=== PATIENT | female | born 1985 | race Caucasian/White ===

== ENCOUNTER 2018-05-31 21:22 | Emergency (ER) | payer OTHER, MEDICAID ==
[2018-05-31] MEDS ORDERED: valACYclovir 500 MG TAB PO ONE ×2 (22:23)
[2018-05-31] MEDS ORDERED: IBUPROFEN 600 MG TAB PO ONE (22:31)
--- NOTE | 2018-05-31 22:42 | EDPHY ---
H & P Time Seen by Provider: 05/31/18 21:48 HPI/ROS: HPI I think I have shingles. 32-year-old female by private vehicle. This patient has a history of 2 prior episodes of zoster shingles. She had 1 episode above her right eye involving the right eyebrow and she has some swelling of the right upper eyelid. She denies any previous history of ocular involvement or involvement of her ear. She reports that she woke up this morning with a swelling and subtle vesicular rash over her right eyebrow. She has been treated successfully in the past with valacyclovir. She denies any changes in vision or pain involving her cornea. No pain with extraocular movements. She denies any ear pain or changes in hearing. No scalp pain. She has not had a fever. No history of trauma. ROS: Constitutional: No fever, no chills. No weakness. Eyes: No discharge. No changes in vision. As above. Musculoskeletal: No neck pain. No myalgias or arthralgias. Skin: As above. Neurological: No headache. Past medical history: Iron deficiency anemia. Shingles. Social history: Nonsmoker. No alcohol. Here by herself. Physical Exam: General Appearance: Alert, no distress. This patient is responding to questions appropriately and in full sentences. This patient appears well- hydrated and well-nourished. Eyes: Pupils equal and round no pallor or injection. She has subtle right upper lid edema which is more prominent on the lateral aspect of the right upper eyelid. She has 2 small subtle areas of vesicular rash involving that right upper eyelid. The right eye is unremarkable on gross inspection. Slit- lamp exam right eye; no hypopyon, no hyphema, anterior chamber is deep and clear , no cell/flare, no evidence of corneal involvement. ENT, Mouth: Mucous membranes are moist. The pharyngeal tissues are unremarkable. No edema or swelling. No asymmetry suggestive of abscess. No erythema or exudates. The right external auditory canal and tympanic membrane are normal on speculum exam. Neurological: Motor sensory function is grossly intact. Cranial nerves are normal. Gait is normal. Skin: Warm and dry, no rashes. Musculoskeletal: Neck is supple and nontender. No cervical, submandibular, submental lymphadenopathy. Extremities are symmetrical. All joints range without pain or impingement. Psychiatric: No agitation. No depression. Database: EKG: Imaging: Procedures: Emergency department course: Vital signs reviewed and are normal. Patient's presentation is consistent with an early zoster V1 dermatome on the right. Plan will be to treat her with valacyclovir. She is not that uncomfortable and this appears to be in its early stages. I will not treat her with steroids at this time. She was given 1000 mg of oral valacyclovir in the emergency department. She also received 600 mg of ibuprofen. She feels comfortable going home. She will be sent home with additional dose of valacyclovir so she can take this in the morning prior to filling her prescription. Follow-up and return to emergency department precautions have been discussed with her. All of her questions were answered. She was discharged from the emergency department in good condition. Differential Diagnosis: The differential diagnosis on this patient includes but is not limited to varicella zoster V1 dermatome, right upper eyelid abrasion with localized inflammation. Preseptal, postseptal cellulitis, endophthalmitis, corneal involvement, [place] syndrome unlikely. This represents a partial list of diagnoses considered. These considerations are based on history, physical exam , past history, reassessment and diagnostic testing. Smoking Status: Never smoked Constitutional: Initial Vital Signs Temperature (C) 36.6 C 05/31/18 21:26 Heart Rate 77 05/31/18 21:26 Respiratory Rate 16 05/31/18 21:26 Blood Pressure 122/79 H 05/31/18 21:26 O2 Sat (%) 96 05/31/18 21:26 O2 Delivery Mode Room Air Allergies/Adverse Reactions: No Known Allergies Allergy (Verified 06/01/18 11:33) Home Medications: Medication Instructions Recorded Valacyclovir HCl [Valtrex] 1,000 mg PO TID #21 tab 05/31/18 predniSONE 60 mg PO DAILY 5 Days tab 06/01/18 Medical Decision Making - Data Points Medications Given: Discontinued Medications Ibuprofen (Motrin) 600 mg PO EDNOW ONE Stop: 05/31/18 22:32 Last Admin: 05/31/18 22:39 Dose: 600 mg Valacyclovir HCl (Valtrex) 1,000 mg PO EDNOW ONE Stop: 05/31/18 22:24 Last Admin: 05/31/18 22:39 Dose: 1,000 mg Valacyclovir HCl (Valtrex) 1,000 mg PO EDNOW ONE Stop: 05/31/18 22:24 Last Admin: 05/31/18 22:39 Dose: 1,000 mg Departure - Departure Disposition: Home, Routine, Self-Care Clinical Impression: Herpes zoster of eyelid Condition: Good Instructions: Shingles (ED) Additional Instructions: Read and follow provided instructions. Follow-up with your primary care physician on Sunday or Sunday of this week for re-evaluation. I have given you several options for referral. Take medication as prescribed through entire course of treatment. Ibuprofen dosin mg every 6 hours with meals for the next 3 days only. Take only as needed for pain. Return to the emergency department immediately for worsening pain, swelling, fever, involvement of you're eye, changes in vision or other serious concerns. Referrals: Maria Poole MD [Medical Doctor] - As per Instructions Teresa Rogers MD [[facility] [place]] - As per Instructions Cindy Denney MD [[facility] [place]] - As per Instructions Prescriptions: Valacyclovir HCl [Valtrex] 1,000 mg PO TID #21 tab
[2018-05-31 23:02] VITALS: BP 125/80
== END 2018-05-31 23:02 | disposition home or self-care (01) ==
DX: B02.30 Zoster ocular disease, unspecified (principal)

== ENCOUNTER 2018-06-01 11:25 | Emergency (ER) | payer OTHER, MEDICAID ==
[2018-06-01 11:36] VITALS: BP 135/92
[2018-06-01] MEDS ORDERED: ACYCLOVIR 400 MG TAB ONE ×2 (12:37→12:51)
[2018-06-01] MEDS ORDERED: ACYCLOVIR 400 MG TAB PO ONE (12:53)
--- NOTE | 2018-06-01 13:33 | EDPHY ---
H & P Time Seen by Provider: 06/01/18 12:37 HPI/ROS: CHIEF COMPLAINT: Right eye pain HISTORY OF PRESENT ILLNESS: 32-year-old female presents to the emergency department with known zoster that she was diagnosed with yesterday to her face. She has had this twice in the past only to her face. She has been taking Valtrex she took a dose last night and then took 1 this morning. She is concerned because she feels like the redness and swelling is getting worse. She went to urgent care they were concerned about possible periorbital cellulitis. She presents to the emergency department for evaluation. She is also concerned that she is developing rash to the left anterior aspect of her forehead. ROS: Denies double vision, blurry vision, any pain at all in her right eye. No symptoms in the left eye. Past Medical/Surgical History: Zoster Social History: , bd special education teacher Smoking Status: Never smoked Physical Exam: On examination the patient has abraded lesions noted to the right upper eyelid. No intact vesicles noted. She does have some slight swelling and very mild redness noted to the right upper eyelid. Slight swelling noted to the inferior aspect of the right lower eyelid. She has no pain with global pressure on the right eye. There is no scleral injection. No evidence of [place] sign. No lesion to the tip of her nose. She has erythematous papules noted to the right amish but also to the left anterior aspect of the forehead. Constitutional: Initial Vital Signs Temperature (C) 36.6 C 06/01/18 11:34 Heart Rate 64 06/01/18 11:34 Respiratory Rate 18 06/01/18 11:34 Blood Pressure 135/92 H 06/01/18 11:34 O2 Sat (%) 98 06/01/18 11:34 O2 Delivery Mode Room Air Allergies/Adverse Reactions: No Known Allergies Allergy (Verified 06/01/18 11:33) Home Medications: Medication Instructions Recorded Valacyclovir HCl [Valtrex] 1,000 mg PO TID #21 tab 05/31/18 predniSONE 60 mg PO DAILY 5 Days tab 06/01/18 MDM/Departure - MDM Medications Given: Discontinued Medications Acyclovir (Acyclovir) 1,000 mg PO EDNOW ONE Stop: 06/01/18 12:54 Last Admin: 06/01/18 12:57 Dose: 1,000 mg ED Course/Re-evaluation: The patient was also seen and examined by Dr. Ynes Lim who also evaluated the patient yesterday. He agrees with continuing Valtrex as prescribed and will add prednisone. I doubt this patient has periorbital cellulitis. I do not think antibiotics are indicated at this time. She has no pain with global pressure on her eye. No pain with extraocular movements. Has no pain really to palpate in the upper or lower right eyelids. - Depart Disposition: Home, Routine, Self-Care Clinical Impression: Zoster Qualifiers: Herpes zoster complications: without complications Qualified Code(s): B02.9 - Zoster without complications Condition: Good Instructions: Shingles (ED) Additional Instructions: Continue Valtrex as prescribed. Prednisone daily for 5 days. Return to the emergency department if you develop fever, discomfort in your eye, visual changes, worsening rash, or if you feel worse in any way. Prescriptions: predniSONE 60 mg PO DAILY 5 Days tab Referrals: Cindy Denney MD [[facility] [place] Primary Care Provider] - As per Instructions (Primary care provider loss prevention manager)
== END 2018-06-01 13:54 | disposition home or self-care (01) ==
DX: B02.9 Zoster without complications (principal)